=== PATIENT | male | born 1995 | race Hispanic/Latino ===

== ENCOUNTER 2024-06-01 21:31 | Emergency (ER) | payer BC, MEDICAID ==
[~2024-06-01] VITALS: Ht 182.9 cm; Wt 129.3 kg
[2024-06-01 22:04] LABS: BASOPHILS # (AUTO) 0.06 K/uL (0.00-0.20); BASOPHILS % (AUTO) 0.5 % (0.0-5.0); EOSINOPHILS % (AUTO) 2.6 % (0.0-8.0); HEMATOCRIT 48.4 % (42-54); IMMATURE GRANULOCYTE ABSOLUTE 0.05 K/uL (0-1); LYMPHOCYTES # (AUTO) 4.1 K/uL (1.0-4.8); LYMPHOCYTES % (AUTO) 35.9 % (21.0-51.0); MEAN CORPUSCULAR HGB CONC 33.5 g/dL (32.0-36.0); MEAN CORPUSCULAR VOLUME 83.6 fL (79-99); MONOCYTES % (AUTO) 8.8 % (3.0-13.0); NEUTROPHILS % (AUTO) 51.8 % (40.0-77.0); PLATELET COUNT (AUTO) 262 K/uL (130-400); RED BLOOD CELL COUNT(AUTO) 5.79 MIL/uL (4.50-6.20); RED CELL DISTRIBUTION WIDTH 13.3 % (11.0-15.5); WHITE BLOOD COUNT (AUTO) 11.5 K/uL (4.8-10.8)
[2024-06-01 22:12] LABS: CREATININE 1.4 mg/dL (0.5-1.3); POTASSIUM 4.1 mmol/L (3.5-5.1)
[2024-06-01 22:12] LABS: APPEARANCE,URINE CLEAR (CLEAR); BILIRUBIN,URINE NEGATIVE (NEGATIVE); COLOR,URINE LIGHT-YELLOW (YELLOW); GLUCOSE, URINE (UA) NEGATIVE (NEGATIVE); KETONES,URINE NEGATIVE (NEGATIVE); LEUKOCYTE ESTERASE ,URINE NEGATIVE Leu/uL (NEGATIVE); NITRATE,URINE NEGATIVE (NEGATIVE); OCCULT BLOOD,URINE NEGATIVE (NEGATIVE); PROTEIN,URINE NEGATIVE (NEGATIVE); UROBILINOGEN,URINE 0.2 mg/dL (0.2-1.0)
[2024-06-01 22:19] LABS: ADD UA MICROSCOPIC NO
[2024-06-01 22:27] LABS: ALBUMIN 3.9 g/dL (3.5-5.0); BILIRUBIN,TOTAL 0.3 mg/dL (0.2-1.0); TOTAL PROTEIN, SERUM 7.7 g/dL (6.0-8.3)
[2024-06-01] MEDS ORDERED: IOHEXOL-350 75 ML VIAL IV ONE (22:51)
[2024-06-01] MEDS: LACTATED RINGERS IV ONE (23:15)
[2024-06-01 23:26] LABS: HEMOGLOBIN A1C 5.5 % (4.0-6.0)
[2024-06-02] MEDS ORDERED: CYCL-309 PO (00:57)
[2024-06-02] MEDS: CYCLOBENZAPRINE HCL 10 MG TABLET PO ONE (01:06)
[2024-06-02 01:26] VITALS: BP 136/82; PULSE 79; RESP 16; O2SAT 100
== END 2024-06-02 01:29 | disposition home or self-care (01) ==
LOC: EDH 21:31
DX: M43.16 Spondylolisthesis, lumbar region (principal); M54.6 Pain in thoracic spine; M79.603 Pain in arm, unspecified; Z88.6 Allergy status to analgesic agent; Z98.890 Other specified postprocedural states
CPT/HCPCS: 72131; 99284; 83036; 82550; 84484; 80053; 85025; 81003; 36415; 72128; 71275; 93005; J7120; Q9967

== ENCOUNTER 2024-08-02 15:14 | Emergency (ER) | payer BC ==
[~2024-08-02] VITALS: Ht 182.9 cm; Wt 127.0 kg
[~2024-08-02 15:14] MED LIST: CYCL-309 PO
[2024-08-02 15:15] VITALS: BP 157/99; PULSE 82; RESP 18; TEMP 97.5
[2024-08-02] MEDS: 0.9%NACL 1000ML 1,000 ML IV ONE (16:29)
[2024-08-02 16:34] LABS: BASOPHILS # (AUTO) 0.04 K/uL (0.00-0.20); BASOPHILS % (AUTO) 0.4 % (0.0-5.0); EOSINOPHILS % (AUTO) 2.1 % (0.0-8.0); HEMATOCRIT 46.1 % (42-54); IMMATURE GRANULOCYTE ABSOLUTE 0.03 K/uL (0-1); LYMPHOCYTES # (AUTO) 2.7 K/uL (1.0-4.8); LYMPHOCYTES % (AUTO) 28.8 % (21.0-51.0); MEAN CORPUSCULAR HEMOGLOBIN 28.5 pg (27.0-33.0); MEAN CORPUSCULAR HGB CONC 33.8 g/dL (32.0-36.0); MEAN CORPUSCULAR VOLUME 84.3 fL (79-99); MONOCYTES # (AUTO) 0.6 K/uL (0.1-1.0); MONOCYTES % (AUTO) 6.1 % (3.0-13.0); NEUTROPHILS # (AUTO) 5.9 K/uL (1.8-7.7); NEUTROPHILS % (AUTO) 62.3 % (40.0-77.0); PLATELET COUNT (AUTO) 231 K/uL (130-400); RED BLOOD CELL COUNT(AUTO) 5.47 MIL/uL (4.50-6.20); RED CELL DISTRIBUTION WIDTH 12.7 % (11.0-15.5); WHITE BLOOD COUNT (AUTO) 9.5 K/uL (4.8-10.8)
[2024-08-02] MEDS: ondanSETRON 4MG INJ IVP ONE (16:49)
[2024-08-02] MEDS: Solu-medROL 125MG VIAL IVP ONE (16:49)
[2024-08-02] MEDS: mecliZINE HCL 25 MG TABLET PO ONE (16:49)
[2024-08-02 16:51] LABS: CREATININE 1.1 mg/dL (0.5-1.3); POTASSIUM 3.8 mmol/L (3.5-5.1)
[2024-08-02] MEDS ORDERED: ONDA-243 PO (17:46)
[2024-08-02] MEDS ORDERED: METH4TAB3 PO (17:46)
[2024-08-02] MEDS ORDERED: MECL-302 PO (17:46)
[2024-08-02] MEDS: acetaMINOPHEN 500 MG TABLET PO ONE (18:23)
== END 2024-08-02 18:32 | disposition home or self-care (01) ==
LOC: EDH 15:14
DX: H81.10 Benign paroxysmal vertigo, unspecified ear (principal); H83.09 Labyrinthitis, unspecified ear; R11.0 Nausea; Z88.6 Allergy status to analgesic agent; Z79.899 Other long term (current) drug therapy; Z98.890 Other specified postprocedural states
CPT/HCPCS: 99284; 96374; 96375; 80048; 85025; 36415; 93005; J7030; J2919; J2405